=== PATIENT | female | born 1995 | race Caucasian/White ===

== ENCOUNTER 2019-05-29 13:10 | Outpatient (CLI) | payer BC, OTHER, SELFPAY ==
[2019-05-29 13:22] VITALS: BP 142/68; PULSE 110; RESP 16; TEMP 36.6
[2019-05-29 13:33] VITALS: BMI 26.2
[2019-05-29 13:38] VITALS: BP 0/0
[2019-05-29 13:41] VITALS: BP 109/72; PULSE 93
[2019-05-29 13:48] VITALS: BP 0/0
[2019-05-29 13:59] LABS: Nitrazine Paper, PH Negative
== END 2019-05-29 13:53 | disposition home or self-care (01) ==
LOC: OPOB 13:17 → OBGYN 13:46 → OPOB 05-30 12:47
PROVIDERS: Family Provider Family Medicine; PCP Family Medicine; Visit Provider Family Medicine
DX: O26.899 Other specified pregnancy related conditions, unspecified trimester (principal); Z3A.00 Weeks of gestation of pregnancy not specified; N89.8 Other specified noninflammatory disorders of vagina
CPT/HCPCS: 83986; 99211

== ENCOUNTER 2019-06-07 10:35 | Inpatient (IN) | payer BC, OTHER, SELFPAY ==
[2019-06-07] VITALS (50 sets, daily range): BP systolic 0–152; BP diastolic 0–73; PULSE 55–94; RESP 16–18; TEMP 36.7–37; O2SAT 89–99; BMI 26.1
[2019-06-07] MEDS: ampicillin 2,000 MG in sodium chloride 0.9% (plus) 50 ML 100 MG IV (11:42)
[2019-06-07] MEDS: lactated ringers 1,000 ML 125 ML IV (11:42)
[2019-06-07] MEDS: miSOPROStol 100 mcg tablet 25 MCG VAGINAL (11:43)
[2019-06-07 11:57] LABS: Basophils % 0.2 %; Hematocrit 37.3 % (37.0-47.0); Hemoglobin 12.1 g/dL (11.5-15.3); Lymphocytes # 0.9 10^3/uL (0.8-4.8); Lymphocytes % 15.5 %; Mean Corpuscular HGB Conc 32.4 g/dL (30.0-36.0); Mean Corpuscular Hemoglobin 27.8 pg (28.0-34.0); Mean Corpuscular Volume 85.7 fL (81-99); Mean Platelet Volume 12.5 fL (7.4-10.4); Monocytes # 0.4 10^3/uL (0.2-0.9); Monocytes % 7.3 %; Neutrophils # 4.4 10^3/uL (1.8-7.7); Neutrophils % 76.3 %; Nucleated Red Blood Cells % 0 %; Platelet Count 143 10^3/cmm (130-400); Red Blood Count 4.35 10^6/uL (4.1-5.3); White Blood Count 5.8 10^3/uL (4.0-10.0)
--- NOTE | 2019-06-07 15:17 | P.ANES_ITS ---
Pre-Anesthetic Assessment Pre-Anesthetic Assessment: Height/Weight: Height 1.75 m Weight 80.286 kg Temp Pulse Resp BP 98.6 F 79 16 0/0 06/07/19 11:00 06/07/19 14:09 06/07/19 12:00 06/07/19 15:08 Social: Social History: No alcohol and No tobacco Exam: Pre-Anes Outpt Exam: alert, oriented x 3, clear to auscultation bilaterally and regular rate & rhythm Airway: Submandibular: WNL Cervical ROM: WNL MP: 2 History/ROS: No significant history except as noted Pulmonary: Pulmonary: None reported CV/HEM: CV/HEM: None reported : : None reported Hepatic: Hepatic: None reported GI: GI: GERD Metabolic: Metabolic: None reported Musc/skel: Musc/skel: None reported Neuropsych: Neuropsych: None reported Anesthetic Plan: ASA status: II Anesthesia: Anesthesia Evaluation, Eval. for regional block and Regional (specify below) (labor epidural) Risk of > 500 ml blood loss (7ml/kg in children): No Meds/Allergies Current Medications: Current Medications Generic Name Dose Route Start Last Admin Trade Name Freq PRN Reason Stop Dose Admin Lactated Ringer's 1,000 mls @ 125 m ls/hr 06/07/19 11:15 06/07/19 15:00 Lactated Ringers IV 999 mls/hr .Q8H MARCUS Infusion Dextrose/Lactated Ringer's 1,000 mls @ 125 m ls/hr 06/07/19 11:15 06/07/19 14:20 Dextrose 5%-Lact ated Ringers IV Not Given .Q8H MARCUS Ampicillin Sodium 2,000 mg/ 50 mls @ 100 mls/ hr 06/07/19 11:30 06/07/19 12:07 Sodium Chloride IV Infused ONCE MARCUS Infusion Protocol Misoprostol 25 mcg 06/07/19 11:30 06/07/19 11:43 Cytotec VAGINAL 06/07/19 15:31 25 mcg Q4H MARCUS Administration PFSH Anesthesia PFSH: Family History (Updated 05/21/19 @ 11:26 by Minoo Zhong RN) Mother No problems noted. Father Hypertension Diabetes Social History (Updated 05/21/19 @ 11:27 by Minoo Zhong RN) Smoking and tobacco status: never smoked Alcohol intake: never Marital status: Current occupational status: employed Female Reproductive History: : 3 Data Anesthesia CBC & Chem 7: 06/07/19 11:20 Other Labs: Laboratory Results - last 48 hr 06/07/19 11:20 WBC 5.8 RBC 4.35 Hgb 12.1 Hct 37.3 MCV 85.7 MCH 27.8 L MCHC 32.4 RDW 15.0 Plt Count 143 MPV 12.5 H Neut % (Auto) 76.3 Lymph % (Auto) 15.5 [place] % (Auto) 7.3 Eos % (Auto) 0.0 Baso % (Auto) 0.2 Neut # (Auto) 4.4 Lymph # (Auto) 0.9 [place] # (Auto) 0.4 Eos # (Auto) 0.0 Baso # (Auto) 0.0 Nucleated RBC % (auto) 0 Nucleated RBCs # 0.0 Cardiac Studies: No Data to Display
[2019-06-07] MEDS: ampicillin 1,000 MG in sodium chloride 0.9% (plus) 50 ML 100 MG IV (15:39)
[2019-06-07] MEDS: lactated ringers 1,000 ML 999 ML IV (15:40)
--- NOTE | 2019-06-07 15:47 | P.ANES_ITS ---
Anesthesia Procedures Procedure/Date: 06/07/19 Procedure Narrative: JAMSHID at 8cm, cath in to 13 cm. Epidural: Time Out Performed: Yes Consents Signed: Procedure Consent Consent: requested by attending/covering physician, risks and benefits reviewed and patient agrees to proceed Lumbar Level: L4-L5 Epidural position: sit ting Epidural procedure: sterile prep of area, 1% lidocaine to numb the area, 18 g needle, negative for paresthesia passed, test dose given, 1.5% xylocaine 1:200k epi, placed PCEA, no systemic response, sterile dressing applied, L.U.D. no apparent complications and 0.2% Ropiavacaine @ mls/hr (13)
[2019-06-07] MEDS: oxytocin 30 UNIT/500 ML BAG 600 UNIT IV (16:29)
[2019-06-07] MEDS: HYDROcodone-acetaminophen 5-325 mg Tablet PO (17:36)
[2019-06-07] MEDS: docusate sodium 100 mg Capsule PO (17:36)
--- NOTE | 2019-06-07 18:05 | P.PCNOB_ITS ---
Delivery Note: Date of delivery: 06/07/19 Pre-delivery diagnoses: Term with cervical changes and admission for cervical ripening for induction purposes. Post-delivery diagnoses: Status post spontaneous vaginal delivery. Procedure: The patient was seen in the office earlier this morning and found to be 3 to 4 cm dilated. After explanation of benefits and risks the patient was sent [facility] labor and delivery for misoprostol cervical ripening. After 1 dose of misoprostel, she began having increasing contractions and closure gathered. While ambulating she suddenly began having significant pain and was brought to her room. She was found to be approximately 5 to 6 cm dilated and preparations were started for epidural anesthesia. She did receive epidural anesthesia and shortly thereafter was completely dilated. This physician was called and found her to have a bulging bag of water but the infant was still about 0 station. Over approximately 11 minutes she was able to push hard and delivered by spontaneous vaginal delivery healthy, viable female infant weighing 7 pounds 6 ounces. After delivery of the head the infant followed very quickly and the was then suctioned upon delivery. The infant cried very well at delivery with no significant problems or concerns. There is a very small midline second-degree episiotomy cut but it tore to a larger second-degree episiotomy. There was no nuchal cord and the cord had 3 blood vessels. After suctioning, the infant was placed on mother's abdomen where the 's father cut the umbilical cord after a little over 1 minute. Cord blood was obtained as maternal blood type was O+. The placenta delivered spontaneously and was intact only a few minutes after delivery of the infant. The episiotomy was repaired first vaginal and then perineal using the epidural anesthesia and layered surgical closure. The patient tolerated this well. A sweep of the vaginal vault found some blood clots but they were removed easily and she is not actively bleeding and fundus is firm. It should be noted that the maternal group B strep was positive. The patient received 2 doses of IV ampicillin prior to delivery of the . Anesthesia: epidural Delivering Physician: Aakash Mckeon MD Estimated blood loss (mL): 182 Findings: Normal delivery. Pre-Delivery Course: This patient was followed by this physician beginning early in her . Maternal blood type was O+ with antibody screen negative. Hepatitis B, hepatitis C, RPR and HIV were negative. Rubella was immune and group B strep was positive. The patient was extremely uncomfortable and [place] and therefore was allowed to begin cervical ripening on her due date especially as she was already making cervical change. Benefits and risks were discussed with patient and spouse. Delivery: Spontaneous vaginal delivery. Post-Delivery Status: Patient is doing well and will be followed through routine postdelivery course. A&P Assessment and plan (1) Spontaneous vaginal delivery: Routine postdelivery care. We will adjust orders as necessary. Status: Acute Code(s): O80 - Encounter for full-term uncomplicated delivery Coding Level of Care Code Acute Box Office Agent for Chg Fwd Diagnoses Spontaneous vaginal delivery O80
[2019-06-08] VITALS: BP 119/76; PULSE 72; RESP 16
[2019-06-08 02:00] VITALS: BP 113/74; PULSE 73; RESP 16; TEMP 36.6
[2019-06-08] MEDS: acetaminophen 325 mg Tablet 650 MG PO (04:18)
[2019-06-08 04:22] LABS: Hemoglobin 10.6 g/dL (11.5-15.3); Mean Corpuscular HGB Conc 32.1 g/dL (30.0-36.0); Mean Corpuscular Hemoglobin 26.7 pg (28.0-34.0); Mean Corpuscular Volume 83.1 fL (81-99); Mean Platelet Volume 12.4 fL (7.4-10.4); Platelet Count 138 10^3/cmm (130-400); Red Blood Count 3.97 10^6/uL (4.1-5.3); Red Cell Distribution Width 15.1 % (12.1-15.1); White Blood Count 8.5 10^3/uL (4.0-10.0)
--- NOTE | 2019-06-08 08:58 | PM.OBGYDC ---
Discharge Providers ASSISTANT GENERAL MANAGER Date of Admission: 06/07/19 10:35 Date of Discharge: 06/08/19 Attending Provider at Admission: Aakash Mckeon MD Attending Provider at Discharge: Aakash Mckeon MD Primary Care Provider: Aakash Mckeon MD Diagnoses at Discharge Discharge Diagnosis (1) Spontaneous vaginal delivery: Status: Acute Reason for Visit Reason for Visit: Reason For Visit: INDUCTION Hospital Course Hospital Course: This patient is done extremely well after delivery yesterday afternoon. She is ambulating well and tolerating a regular diet. The infant has breast-fed well off and on. Patient states she has had mild lochia with no significant clots or heavy bleeding. She is felt to be stable be discharged home this evening. Information Peripartum Data: Infant Delivery Method: Vaginal Episiotomy description: Midline Physical Exam Const: COMMON NORMALS: no apparent distress, oriented x3 and well nourished Resp: COMMON NORMALS: normal respiratory effort, no retractions, no use of accessory muscles and clear to auscultation bilaterally AUSCULTATION: clear to auscultation bilaterally Cardio: COMMON NORMALS: regular rate, regular rhythm and no murmurs RATE: regular rate RHYTHM: regular rhythm GI: COMMON NORMALS: normal to inspection, nondistended, normoactive bowel sounds, soft to palpation and non-tender (Fundus is firm and low abdomen below umbilicus.) PALPATION: Yes soft : COMMON NORMALS: Yes no CVA tenderness BLADDER/KIDNEY EXAM: Yes no CVA tenderness Back/Pelvis: COMMON NORMALS: no CVA tenderness and thoracic and lumbar spine normal to inspection Extremity: COMMON NORMALS: normal to inspection and full ROM Neuro: COMMON NORMALS: oriented x3, moves all extremities and no focal motor deficits Psych: COMMON NORMALS: mental status grossly normal, thought process normal, cooperative and affect normal THOUGHT PROCESS: normal thought process Discharge Data Data Completed and Pending: Labs from last 24 hours 06/08/19 06/07/19 04:10 11:20 WBC 8.5 5.8 RBC 3.97 L 4.35 Hgb 10.6 L 12.1 Hct 33.0 L 37.3 MCV 83.1 85.7 MCH 26.7 L 27.8 L MCHC 32.1 32.4 RDW 15.1 15.0 Plt Count 138 143 MPV 12.4 H 12.5 H Neut % (Auto) 76.3 Lymph % (Auto) 15.5 [place] % (Auto) 7.3 Eos % (Auto) 0.0 Baso % (Auto) 0.2 Neut # (Auto) 4.4 Lymph # (Auto) 0.9 [place] # (Auto) 0.4 Eos # (Auto) 0.0 Baso # (Auto) 0.0 Nucleated RBC % (a uto) 0 Nucleated RBCs # 0.0 Vitals: Last Vital Signs Temp 97.8 F 06/08/19 02:00 Pulse 73 06/08/19 02:00 Resp 16 06/08/19 02:00 BP 113/74 06/08/19 02:00 Pulse Ox 94 06/07/19 15:39 Discharge Plan Discharge Patient Disposition: Home, Self-Care Condition: Stable Prescriptions: New docusate sodium 100 mg Capsule 100 mg PO BID Qty: 60 RF: 1 ibuprofen 800 mg Tablet 800 mg PO TID 30 Days Qty: 90 RF: 2 Continued Vitamin 27 mg iron- 0.8 mg Tablet 1 tab PO DAILY RF: 0 Discontinued doxylamine-pyridoxine (vit B6) [Diclegis] 10-10 mg Tablet,Delayed Release (Dr/Ec) 1 tab PO BEDTIME RF: 0 Discharge Orders: Discharge Order (Routine); Ordered 06/08/19 Ordered By: Aakash Mckeon Referrals: Aakash Mckeon MD [Primary Care Provider] - (Follow-up with Dr. Mckeon in 6 weeks and as needed.) Discharge Diet: Usual diet and Regular Discharge Activity: Resume usual activity Activity Restrictions/Additional Instructions: Routine instructions. Discharge Attestations ASSISTANT GENERAL MANAGER Time Spent in Discharge Care*: less than 30 min Specific Discharge Activities: Specific discharge activities: educating patient and documenting/other paperwork Status at Discharge: Cognitive status at discharge: cognitively intact, Behavioral status at discharge: cooperative, Functional status at discharge: independent ambulation Overall status at discharge: patient is back to baseline Coding Level of Care Code Acute Surgical Clinical Reviewer for Chg Fwd Diagnoses Spontaneous vaginal delivery O80
[2019-06-08] MEDS: docusate sodium 100 mg Capsule PO (09:34)
[2019-06-08] MEDS: prenatal vitamin Capsule 1 CAP PO (09:34)
[2019-06-08 10:10] VITALS: BP 115/68; PULSE 63; RESP 16; TEMP 36.6
[2019-06-08 13:42] VITALS: BP 117/70; PULSE 61; RESP 16; TEMP 36.7; O2SAT 99
[2019-06-08 15:41] LABS: Bilirubin Urine Neg (NEGATIVE); Blood Urine 3+ (Negative); Glucose Urine UA Norm (Normal); Ketones Urine Negative (Negative); Leukocyte Esterase Urine Negative (Negative); Nitrate Urine Negative (Negative); Protein Urine Neg (Negative); Specific Gravity, Urine 1.005 (1.005-1.030); Urine Appearance Clear (CLEAR); Urine Color Straw (Yellow); Urobilinogen Urine Norm (Negative); pH Urine 7 (5-7)
[2019-06-08 15:43] LABS: Squamous Epithelial Cell Urine 0-4 (0-5)
[2019-06-08 15:44] LABS: Add Urine Culture? Yes; Bacteria Urine 1+; Mucus Urine TRACE
[2019-06-08] MEDS: HYDROcodone-acetaminophen 5-325 mg Tablet PO (20:40)
--- NOTE | 2019-06-08 21:00 | PC.NURSE ---
PT C/O NOT FEELING WELL PT C/O NAUSEA, CHEEKS FLUSHED, VS WNL, FUNDUS FIRM, SCANT LOCHIA NOTED. PT DENIES ANY PAIN. C/O FEELING WEAK. PT HAS NOT HAD MUCH REST. CONTINUE TO MONITOR.
--- NOTE | 2019-06-08 21:03 | PC.NURSE ---
CALLED DR SCHWAB REPORTED PT C/O AND VS CHARTED. ORDER REC'D FOR UA.
[2019-06-08 21:05] VITALS: BP 116/74; PULSE 102; RESP 18; TEMP 36.6
--- NOTE | 2019-06-08 21:13 | PC.NURSE ---
REPORTED TO DR SCHWAB REPORTED TO DR SCHWAB PT VOICES FEELING MUCH BETTER. DR SCHWAB AWARE OF UA RESULTS. PT MAY BE DISCHARGED PLANNED.
== END 2019-06-08 21:05 | disposition home or self-care (01) | DRG 807 ==
PROVIDERS: Admitting Provider Family Medicine; Family Provider Family Medicine; PCP Family Medicine; Visit Provider Family Medicine
DX: O98.82 Other maternal infectious and parasitic diseases complicating childbirth (principal); Z37.0 Single live birth; B95.1 Streptococcus, group B, as the cause of diseases classified elsewhere; O70.1 Second degree perineal laceration during delivery; Z3A.40 40 weeks gestation of pregnancy
CPT/HCPCS: 12345; 36415; 59409; 81001; 85025; 85027; 87086; 98960; J0290; J2795

== ENCOUNTER 2023-01-03 08:17 | Outpatient (CLI) | payer OTHER, SELFPAY ==
--- NOTE | 2023-01-03 08:23 | XR_ITS ---
WS: [id number] EXAMINATION: XR knee LT 3V* [id number] REASON FOR EXAM: left knee continued pain COMPARISON: None available. ORDER DATE: 01/03/2023 8:37 AM FINDINGS: There is no sign of any acute osseous or articular abnormality. There are no specific soft tissue abn ormalities. IMPRESSION: No acute change
== END 2023-01-03 08:18 | disposition home or self-care (01) ==
PROVIDERS: PCP Family Medicine; Visit Provider Nurse Practitioner Family
DX: M25.562 Pain in left knee (principal)
CPT/HCPCS: 73562